=== PATIENT | female | born 1990 | race Two or more races ===

== ENCOUNTER 2016-03-19 08:21 | Day surgery (SDC) | payer OTHER ==
[~2016-03-19] VITALS: Ht 157.5 cm; Wt 71.0 kg
[~2016-03-19 08:21] MED LIST: CEPH500C PO; FES300; FLUC150T3 PO; NPR500T PO; ONDA4TAB12 PO; PANT40TA3 PO; PHEN-683 PO; PREN1TAB47; REGL PO; SUCR1ORA2 PO; Sodium Chloride LOK Flush 10 mL Syringe IV PRN; TUMS; TYL325; fentaNYL-PF 50 mCg/mL 2 mL Inj IVPUSH PRN
[2016-03-19 08:37] VITALS: BP 133/91; PULSE 91; RESP 16; O2SAT 97
[2016-03-19] MEDS ORDERED: ESOM40CA41 PO (08:39)
[2016-03-19] MEDS ORDERED: MEDR150D9 IM (08:48)
[2016-03-19] MEDS: 0.9% Sodium Chloride 1,000 ML ONE ×2 (08:59→09:16)
[2016-03-19 09:22] VITALS: BP 123/75; PULSE 93; RESP 12; O2SAT 98
[2016-03-19 09:32] VITALS: BP 118/80; PULSE 82; RESP 14; O2SAT 100
--- NOTE | 2016-03-19 09:41 | ENDO ---
[address] [address] ENDOSCOPY PROCEDURE PATIENT: RODRÍGUEZ AGUILAR : 1990 MR#: [id number] ADMIT: 03/19/2016 JOB ID: [id number] DATE: 03/19/2016 TYPE OF OPERATION: Esophagogastroduodenoscopy with biopsy. PREOPERATIVE DIAGNOSIS(ES): Epigastric pain. POSTOPERATIVE DIAGNOSIS(ES): Mild nonerosive gastritis. ANESTHESIA: 1. Fentanyl 150 mcg. 2. Versed 8 mg IV administered. BLOOD LOSS: Minimal. DESCRIPTION OF PROCEDURE: After risks and benefits were explained to the patient, informed consent was obtained. After anesthesia administered, the upper endoscope was inserted into the mouth and into the esophagus, stomach, second portion of duodenum. Mucosa carefully examined. After procedure was done, the scope was withdrawn and the procedure terminated. FINDINGS: Upon inspection of the esophagus, the esophagus was normal without masses, ulcers or lesions. Z-line located 35 cm from incisors. Upon entering the stomach, the stomach showed mild nonerosive gastritis. No masses, ulcers, lesions were seen. Retroflexion was normal. Duodenal bulb, first portion normal. Biopsies taken of the antrum and body of the stomach. IMPRESSION: Mild nonerosive gastritis. RECOMMENDATION: Await pathology results. Increase Nexium to 40 mg by mouth twice a day given the fact that the patient states the Nexium is helping her. Followup in GI clinic as needed.
[2016-03-19 09:45] VITALS: BP 127/88; PULSE 95; O2SAT 100
--- NOTE | 2016-03-22 10:58 | PATH ---
SURGICAL PATHOLOGY Attending Physician:Abel Young MD CASE STATUS: Signed Out PATIENT NAME: RODRÍGUEZ AGUILAR PID: [id number] : 1990 DATE COLLECTED:03/19/2016 17:06 SPECIMEN: 1: Gastric, Biopsy 2: Stomach, Antrum, Biopsy CLINICAL HISTORY: A: GASTRIC BODY BIOPSY B: ANTRUM BIOPSY FINAL DIAGNOSIS: 1.GASTRIC BODY, BIOPSY: GASTRIC CORPUS WITH MILD CHRONIC GASTRITIS. Negative for Helicobacter organisms. Negative for intestinal metaplasia. No evidence of dysplasia or malignancy. 2.GASTRIC ANTRUM, BIOPSY: GASTRIC ANTRUM WITH MILD CHRONIC GASTRITIS. Negative for Helicobacter organisms. Negative for intestinal metaplasia. No evidence of dysplasia or malignancy. ICD10 CODEK29.70 GROSS DESCRIPTION: The specimen is received in two formalin filled containers labeled with the patient's name. 1). The specimen is sublabeled "gastric body" and consists of 2 portions of tissue which aggregate to 0.4 x 0.3 x 0.2 CM. The specimen is entirely submitted in cassette 1A. 2). The specimen is sublabeled "antrum" and consists of 2 portions of tissue which aggregate to 0.3 x 0.3 x 0.3 CM. The specimen is entirely submitted in cassette 2A. 03/19/2016 [facility] MICRO DESCRIPTION: See diagnosis. ICD-9 CODES: CPT CODES: 1: 44134 2: 71814 Electronically Signed Out Brandon Pascual MD [facility] Pathology [facility], [place] [address] Technical component performed at [facility], [address] [place] [address] Ave[address], [place], [address]
[2016-07-29] MEDS ORDERED: NITR100 PO (13:06)
== END 2016-03-19 23:59 | disposition home or self-care (01) ==
LOC: END 08:21
PROVIDERS: ATTEND Internal Medicine Gastroenterology
DX: K29.50 Unspecified chronic gastritis without bleeding (principal)
CPT/HCPCS: 43239; J2250; J7030

== ENCOUNTER 2016-07-27 20:57 | Emergency (ER) | payer OTHER ==
[~2016-07-27] VITALS: Ht 158.8 cm; Wt 68.2 kg
[~2016-07-27 20:57] MED LIST changes: -CEPH500C PO; +ESOM40CA41 PO; -FES300; -FLUC150T3 PO; +MEDR150D9 IM; -ONDA4TAB12 PO; -PANT40TA3 PO; -PHEN-683 PO; -PREN1TAB47; -REGL PO; -Sodium Chloride LOK Flush 10 mL Syringe IV PRN; -TUMS; -fentaNYL-PF 50 mCg/mL 2 mL Inj IVPUSH PRN
[2016-07-27 21:06] VITALS: BP 151/93; PULSE 89; RESP 18; O2SAT 97
[2016-07-27 22:08] LABS: APPEARANCE,URINE CLEAR (CLEAR,HAZY); COLOR,URINE STRAW (YELLOW); OCCULT BLOOD,URINE TRACE (NEGATIVE); PH,URINE 6.5 (5.0-8.0); UROBILINOGEN,URINE NORMAL (NORMAL)
--- NOTE | 2016-07-27 22:19 | ED.REPORT ---
HPI-Abd Pain F Under 40 Date of Service July 27, 2016 ED Provider: Julien Bell MD The patient is a 25 year old female with history of GERD, who presents to the emergency department complaining of "sharp" mid abdominal pain that began around 1200 today. At time of onset of pain she felt hot, faint, and like she was going to pass out, then she started vomiting. She did not lose consciousness. She also experienced nausea, foul-smelling urine, and a sore throat. She denies diarrhea, fever, chills, dysuria, hematuria. No one else at home is sick with similar symptoms. She has chronic "burning" abdominal pain related to her GERD. She was previously taking Nexium and Zofran but stopped because she felt like these medications weren't helping with her symptoms related to GERD. Nursing Notes Stated Complaint: BAD STOMACH PAIN, VOMITING, DIZZY Chief Complaint: Female Abdominal Pain Nursing Notes Reviewed: Yes Allergies: Coded Allergies: fluticasone (Verified Allergy, Severe, NASAL, 09/09/11) amoxicillin (Verified Allergy, Intermediate, itchy rash, 07/08/13) Scheduled Esomeprazole Magnesium (Nexium) 40 Mg Capsule.dr 40 MG PO DAILY Sucralfate Susp (Carafate Susp) 1 Gm/10 Ml Oral.susp 1 GM PO QID Scheduled PRN Naproxen (Naproxen) 500 Mg Tab 500 MG PO BID PRN PRN For Pain Miscellaneous Medications Acetaminphen-Expunged Drug, Do Not Renew! (Acetaminphen-Expunged Drug, Do Not Renew!) 325 Mg Tablet Medroxyprogesterone Acetate (Depo-Provera) 150 Mg/1 Ml Syringe 150 MG IM General Time Seen by MD: 22:11 Chief Complaint Abdominal pain Hx Obtained From: Patient Arrived By: Walk-in Sudden in Onset?: Yes Onset Occurred: 9 - 12 hours ago Symptom Duration: Since onset Progression since Onset: Constant Quality: Itching Severity: Current: Moderate Severity: Maximum: Severe Recent Healthcare: No recent doctor visit, No recent hospitalization Similar Sx Previous: No Past Medical History Past Medical History GERD Past Surgical History Endoscopy Family History Noncontributory Smoking History Never Smoker Social History She has 4 children. Alcohol Use: Denies alcohol use Drug Use: Denies drug use Other Social History: Good social support, , Lives with children, Local resident Occupation Works at [employer] Status Independent Review of Systems Review of Systems Note: +felt flushed, hot, and like she was going to pass out Constitutional: Denies: Chills, Fever GI: Reports: Abdominal pain, Nausea, Vomiting, Denies: Diarrhea Female: Denies: Dysuria, Hematuria Complete sys rev & neg: except as marked. Ears / Nose / Throat: Reports: Sore throat Neurologic: Reports: Dizziness, Lightheaded, Denies: Change LOC, Syncope Physical Exam Initial Vital Signs Vital Signs (First) Date Time Temp Pulse Resp B/P Pulse Ox O2 Delivery O2 Flow Rate FiO2 07/27/16 21:06 37.1 89 18 151/93 97 Room Air Initial VS: Reviewed Head / Eyes: Atraumatic, Normocephalic, PERRL ENT: Mucous membranes moist, Conjunctiva normal, No scleral icterus Neck: Supple, Non-tender, Full range of motion Lymphatic: No lymphadenopathy Extremities: Vascular intact, Neuro intact, No swelling, No tenderness Skin: Warm, Dry, No cyanosis Neurologic: Alert, Oriented, Nonfocal Psychiatric: Mood/affect normal, Behavior normal, Normal thought content General/Constitutional: Awake, Alert, No acute distress, Well appearing, Well developed, Well hydrated, Well nourished, Cooperative Respiratory / Chest: Atraumatic, Breath sounds NL, Breath sounds = bilat, No respiratory distress, No rales, No rhonchi, No wheezing Cardiovascular: Heart rate NL, Regular rhythm, Heart sounds NL, No gallop, No murmurs, No rubs, Peripheral circulation NL Abdomen: Atraumatic, Soft, Non-tender, McBurney's non-tender, No guarding, No rebound, BS normoactive, No distention, No hernia, No palpable mass Back: Inspection NL, Full range of motion Interpretation & Diagnostics Lab Results Interpretation Test 07/27/16 21:48 Urine Color Straw (YELLOW) Urine Appearance Clear (CLEAR,HAZY) Urine pH 6.5 (5.0-8.0) Urine Specific B[place]um 1.006 (1.003-1.035) Urine Protein Negativemg/dL (NEG,TRACE) Urine Glucose (UA) Negativemg/dL (NEGATIVE) Urine Ketones Negativemg/dL (NEGATIVE) Urine Occult Blood Trace (NEGATIVE) Urine Nitrite Negative (NEGATIVE) Urine Bilirubin Negative (NEGATIVE) Urine Urobilinogen Normalmg/dL (NORMAL) Urine Leukocyte Esterase Negative (NEGATIVE) Urine RBC 0-2/hpf (0-2) Urine WBC 0-5/hpf (0-5) Urine Epithelial Cells Occasional/hpf (NONE-MOD) Urine Crystals None seen (NONE SEEN) Urine Bacteria Many/hpf (NONE-FEW) Urine Hyaline Casts None/lpf (NONE) Urine Granular Casts None seen (NONE SEEN) Urine Waxy Casts None seen (NONE SEEN) Urine Red Blood Cell Casts None seen (NONE SEEN) Urine White Blood Cell Casts None seen (NONE SEEN) Urine Mucus None seen (None Seen) Urine Trichomonas None seen (NONE SEEN) Urine Yeast None (NONE SEEN) Urinalysis Comment None Urine Culture Reflexed Indicated Re-Eval/Medical Decision Med Decision/Clinical Course After thorough interview it seems that her symptoms are most consistent with a vasovagal response. Given her recent diagnosis of gastritis it is conceivable that her symptoms are related to worsening gastritis. No definitive diagnosis is made at this time. She looks well now and has normal vital signs and a benign abdominal examination. I think that outpatient follow-up is appropriate. Source of Hx: Old records Re-Evaluation/Progress : Time of Eval: 22:31 Re-Evaluation/Progress Note: The patient still feels flushed at this time. She is no longer in any pain. Repeat vitals: HR: 84 bpm, O2 sat: 97% on room air, BP:124/87. Discussed exam findings, urinalysis results, diagnosis, and plan for discharge. All questions were addressed. Counseled Regarding: Diagnosis, Lab results, Need for follow-up, When/why to return to ED Discharge & Departure Primary Impression: Abdominal pain Abdominal location: unspecified location Qualified Code: R10.9 - Unspecified abdominal pain Additional Impression: Hx of gastroesophageal reflux (GERD) Disposition: Home Discharge Condition All VS Reviewed: Yes Condition: Stable Additional Instructions: Thank you for entrusting us with your care today. Your exam findings and urinalysis results are reassuring. There is no sign of a urinary tract infection at this time. Make sure to drink plenty of fluids. Start taking Zantac 150 mg twice daily, instead of the Nexium. Followup with your regular doctor in the next week or so for re-evaluation. Return to the emergency department for any new or concerning symptoms. Referrals: Darshana Mccall MD (PCP) Cliff Attestation Portions of this note were transcribed by Cass Cutler. I, Dr. Bell personally performed the history, physical exam and medical decision-making; I reviewed and confirmed the accuracy of the information in the transcribed note. Signed by: Cliff Gates, 07/27/2016 at 2300. copies to: Darshana Mccall MD, Kirk H MD July 27, 2016 22:19 Cass Cutler July 27, 2016 22:28
[2016-07-27 22:55] VITALS: BP 136/93; PULSE 87; RESP 20; O2SAT 98
[2016-07-27 22:56] VITALS: BP 136/93; PULSE 87; RESP 20; O2SAT 98
[2016-07-29] MEDS ORDERED: NITR100 PO (13:06)
== END 2016-07-27 22:56 | disposition home or self-care (01) ==
LOC: SED 20:57
DX: R10.9 Unspecified abdominal pain (principal); R11.2 Nausea with vomiting, unspecified; Z87.19 Personal history of other diseases of the digestive system; Z88.1 Allergy status to other antibiotic agents; Z88.8 Allergy status to other drugs, medicaments and biological substances

== ENCOUNTER 2016-12-03 23:31 | Emergency (ER) | payer OTHER ==
[~2016-12-03] VITALS: Ht 157.5 cm; Wt 68.0 kg
[~2016-12-03 23:31] MED LIST changes: +NITR100 PO
[2016-12-03 23:43] VITALS: BP 137/86; PULSE 116; RESP 18; O2SAT 99
[2016-12-04 00:05] LABS: APPEARANCE,URINE HAZY (CLEAR,HAZY); COLOR,URINE YELLOW (YELLOW); OCCULT BLOOD,URINE MODERATE (NEGATIVE); UROBILINOGEN,URINE NORMAL (NORMAL)
--- NOTE | 2016-12-04 00:23 | ED.REPORT ---
HPI-General Illness Date of Service Dec 04, 2016 ED Provider: Oscar Ordoñez DO Pt is a 26 year old female with a history of kidney infections, migraines, and GERD who presents to the ED complaining of low back pain onset 4 days ago. She c /o decreased appetite, nausea, vomiting, dysuria, increased urinary frequency, and fever. She denies any other symptoms. The pt reports that she is not currently menstruating, but stopped 3 days ago. She denies a history of kidney stones. Pt denies . Per pt, she presented to a clinic 4 days ago and she was diagnosed with a UTI. She was discharged on an antibiotic. Nursing Notes Stated Complaint: UTI, KIDNEY PAIN Chief Complaint: Female Abdominal Pain Nursing Notes Reviewed: Yes Allergies: Coded Allergies: fluticasone (Verified Allergy, Severe, NASAL, 12/03/16) amoxicillin (Verified Allergy, Intermediate, itchy rash, 12/03/16) Scheduled Esomeprazole Magnesium (Nexium) 40 Mg Capsule.dr 40 MG PO DAILY Nitrofurantoin Monohyd/M-Cryst (MacroBid) 100 Mg Capsule 100 MG PO BID Sucralfate Susp (Carafate Susp) 1 Gm/10 Ml Oral.susp 1 GM PO QID Scheduled PRN Naproxen (Naproxen) 500 Mg Tab 500 MG PO BID PRN PRN For Pain Miscellaneous Medications Acetaminphen-Expunged Drug, Do Not Renew! (Acetaminphen-Expunged Drug, Do Not Renew!) 325 Mg Tablet Medroxyprogesterone Acetate (Depo-Provera) 150 Mg/1 Ml Syringe 150 MG IM General Time Seen by MD: 00:22 Chief Complaint Back pain Hx Obtained From: Patient Arrived By: Walk-in Sudden in Onset?: No Onset Occurred: 4 days ago Symptom Duration: Since onset Location: : Abdomen: Back Quality: Painful Radiation: : Does not radiate Severity: Current: Moderate Severity: Maximum: Moderate Recent Healthcare: Recent doctor visit Similar Sx Previous: No Past Medical History Past Medical History Kidney infection Denies kidney stones Reports: GERD Reports: Migraines Past Surgical History Endoscopy Family History Noncontributory Smoking History Never Smoker Social History She has 4 children. Alcohol Use: Denies alcohol use Drug Use: Denies drug use Other Social History: Good social support, , Lives with children, Local resident Occupation Works at [employer] Status Independent Review of Systems + Decreased appetite Full Review of Systems Constitutional: Reports: Fever GI: Reports: Abdominal pain, Nausea, Vomiting Female: Reports: Dysuria, Urinary frequency Musculoskeletal: Reports: Back pain, Extremity swelling Complete sys rev & neg: except as marked. Physical Exam Vital Signs Vital Signs Date Time Temp Pulse Resp B/P Pulse Ox O2 Delivery O2 Flow Rate FiO2 12/04/16 03:03 37.1 107 18 130/90 99 Room Air 12/03/16 23:43 38.3 116 18 137/86 99 Room Air Initial VS: Reviewed Head / Eyes: Atraumatic, Normocephalic Neck: Supple, Full range of motion Respiratory: Breath sounds normal, Clear to auscultation, No respiratory distress Cardiovascular: Regular rate & rhythm, Heart sounds normal, Intact distal pulses Extremities: Vascular intact, Neuro intact Skin: Warm, Dry, No cyanosis Neurologic: Alert, Oriented, Nonfocal Psychiatric: Mood/affect normal, Behavior normal General/Constitutional: Awake, Alert Back: Full range of motion Right CVA tenderness Interpretation & Diagnostics Lab Results Interpretation Result Diagram: 12/04/16 0025 12/04/16 0025 Test 12/03/16 23:55 12/04/16 00:25 Urine Color Yellow (YELLOW) Urine Appearance Hazy (CLEAR,HAZY) Urine pH 5.0 (5.0-8.0) Urine Specific [place] 1.025 (1.003-1.035) Urine Protein Tracemg/dL (NEG,TRACE) Urine Glucose (UA) Negativemg/dL (NEGATIVE) Urine Ketones Negativemg/dL (NEGATIVE) Urine Occult Blood Moderate (NEGATIVE) Urine Nitrite Negative (NEGATIVE) Urine Bilirubin Negative (NEGATIVE) Urine Urobilinogen Normalmg/dL (NORMAL) Urine Leukocyte Esterase Negative (NEGATIVE) Urine RBC 11-50/hpf (0-2) Urine WBC 6-10/hpf (0-5) Urine Epithelial Cells Many/hpf (NONE-MOD) Urine Crystals None seen (NONE SEEN) Urine Bacteria Moderate/hpf (NONE-FEW) Urine Hyaline Casts None/lpf (NONE) Urine Granular Casts None seen (NONE SEEN) Urine Waxy Casts None seen (NONE SEEN) Urine Red Blood Cell Casts None seen (NONE SEEN) Urine White Blood Cell Casts None seen (NONE SEEN) Urine Mucus Present (None Seen) Urine Trichomonas None seen (NONE SEEN) Urine Yeast None (NONE SEEN) Urinalysis Comment None Urine Culture Reflexed Indicated Hold Urine Received (Received) White Blood Count 10.6th/mm3 (3.8-10.1) Red Blood Count 4.06mil/mm3 (3.90-5.20) Hemoglobin 12.6g/dL (12.0-15.6) Hematocrit 37.7% (35.0-46.0) Mean Corpuscular Volume 92.9fL (81-100) Mean Corpuscular Hemoglobin 31.0pg (27.0-35.0) Mean Corpuscular Hemoglobin Concent 33.4% (32.0-37.0) Red Cell Distribution Width 13.0% (12.3-15.4) Platelet Count 313bil/L (150-400) Neutrophils (%) (Auto) 60.9% (40-74) Lymphocytes (%) (Auto) 26.1% (14-46) Monocytes (%) (Auto) 11.8% (4-12) Eosinophils (%) (Auto) 0.8% (0-5) Basophils (%) (Auto) 0.1% (0-3) Sodium Level 137mEq/L (134-144) Potassium Level 3.7mEq/L (3.5-5.2) Chloride Level 97mEq/L (97-108) Carbon Dioxide Level 23mmol/L (18-29) Blood Urea Nitrogen 8mg/dL (6-20) Creatinine 0.59mg/dL (0.57-1.00) Estimat Glomerular Filtration Rate 176mL/min (>59) Glucose Level 115mg/dL (60-99) Calcium Level 9.0mg/dL (8.5-10.1) Magnesium Level 1.9mg/dL (1.6-2.6) Total Bilirubin 0.7mg/dL (0.0-1.2) Aspartate Amino Transf (AST/SGOT) 125U/L (0-50) Alanine Aminotransferase (ALT/SGPT) 62U/L (0-32) Alkaline Phosphatase 62U/L (25-150) Total Protein 8.0g/dL (6.4-8.4) Albumin 4.3g/dL (3.4-5.0) Lipase 21U/L (13-60) Hold Davidson Top Tube Received (Received) Re-Eval/Medical Decision Med Decision/Clinical Course Signs and symptoms of pyelonephritis. She has been on ciprofloxacin so therefore I gave her 2 g of IV ceftriaxone. Will place her on Bactrim. We will culture her urine. Her laboratory works otherwise reassuring. She is afebrile. She is keeping liquids down. I do recommend close outpatient follow- up. Source of Hx: Old records Time of Eval: 00:28 Re-Evaluation/Progress Note: Informed pt of lab results. Informed pt of plan for treatment. Pt understands and agrees with plan for treatment. All questions addressed. Time of Eval: 02:10 Re-Evaluation/Progress Note: Pt rechecked. Informed pt of UTI and elevated liver enzymes, as well as plan for treatment with bactrim. Pt was advised to follow up with her PCP to discuss her elevated liver enzymes. Informed pt of plan for discharge. Pt understands and agrees with plan for discharge. F/U instructions and RTER warnings given. All questions addressed. Counseled Regarding: Diagnosis, Lab results, Need for follow-up, When/why to return to ED Discharge & Departure Primary Impression: UTI (urinary tract infection) Urinary tract infection type: acute pyelonephritis Qualified Code: N10 - Acute pyelonephritis Disposition: Home Discharge Condition All VS Reviewed: Yes Condition: Stable Patient Instructions: Urinary Tract Infection in Women (ED) Additional Instructions: Take Bactrim 2x daily for 7 days. Take Naprosyn 2x daily as needed for pain. Drink plenty of liquids. Take Tylenol and Motrin as directed for pain. The culture of your urine will be available by Tuesday. Call your primary care provider on Tuesday for a follow up appointment on Tuesday. Your liver enzymes are elevated and this too needs to be followed up with. Return to the Emergency Department for any new or worrisome symptoms. Referrals: Darshana Mccall MD (PCP) Cliff Attestation Portions of this note were transcribed by Sharla Linder. I, Dr. Ordoñez personally performed the history, physical exam and medical decision-making; I reviewed and confirmed the accuracy of the information in the transcribed note. Signed by : Cliff Coates, 12/04/16. copies to: Darshana Mccall MD, Todd P DO Dec 04, 2016 00:23 Sharla Spain Dec 04, 2016 00:54
[2016-12-04 00:31] LABS: BASOPHILS % (AUTO) 0.1 % (0-3); EOSINOPHILS % (AUTO) 0.8 % (0-5); MONOCYTES % (AUTO) 11.8 % (4-12); Mean Corpuscular Volume 92.9 fL (81-100); NEUTROPHILS % (AUTO) 60.9 % (40-74); Platelet Count 313 bil/L (150-400)
[2016-12-04] MEDS ORDERED: 0.9% Sodium Chloride 1,000 ML IV SCH (00:35)
[2016-12-04] MEDS ORDERED: cefTRIAXone Inj 2,000 MG in Dextrose 5% Minibag Plus 50 ML IV ONE (00:35)
[2016-12-04 01:00] LABS: Magnesium 1.9 mg/dL (1.6-2.6)
[2016-12-04 03:03] VITALS: BP 130/90; PULSE 107; RESP 18; O2SAT 99
[2016-12-04] MEDS ORDERED: Sodium Chloride LOK Flush 10 mL Syringe IVFLUSH SCH (08:30)
== END 2016-12-04 03:04 | disposition home or self-care (01) ==
LOC: SED 23:31
DX: N10 Acute pyelonephritis (principal); K21.9 Gastro-esophageal reflux disease without esophagitis; Z87.440 Personal history of urinary (tract) infections; Z88.0 Allergy status to penicillin
CPT/HCPCS: 36415; 80053; 81000; 81025; 83690; 83735; 85025; 87086; 87088; 96365; 96375; 99284; J0696; J1885; J7030